=== PATIENT | female | born 1960 | race Caucasian/White ===

== ENCOUNTER 2018-09-21 19:44 | Emergency (ER) | payer OTHER ==
[2018-09-21 19:55] VITALS: BP 137/88
[2018-09-21] MEDS ORDERED: HYDROcodone/ACETAMIN 5-325 MG* 1 TAB PO ONE (20:16)
--- NOTE | 2018-09-21 20:16 | UC ---
Upper Extremity HPI - HPI Summary HPI Summary: 58-year-old woman comes in with a chief complaint of right arm pain. Several days ago had a bout the right elbow. Pain radiates up and down the arm into her neck. Patient feels like she's had a pinched nerve in her neck. She's had that condition in the past and that's what this reminds her of. She has no weakness or numbness. When she standing and her arms hanging down the pain is at its least. Movement and laying down makes the pain worse. No known trauma. - History of Current Complaint Chief Complaint: UCUpperExtremity Stated Complaint: SHOULDER AND ARM PAIN Time Seen by Provider: 09/21/18 19:51 Hx Last Menstrual Period: last one in November Pain Intensity: 6 - Allergies/Home Medications Allergies/Adverse Reactions: Allergies Allergy/AdvReac Type Severity Reaction Status Date / Time Penicillins Allergy Severe Hives/Diff. Verified 09/21/18 19:50 Breathing/I tching PMH/Surg Hx/FS Hx/Imm Hx Previously Healthy: Yes - Surgical History Surgical History: Yes Surgery Procedure, Year, and Place: Tonsillectomy/Adenoidectomy, 1967, [place], [place] - Family History Known Family History: Positive: Non-Contributory - Social History Alcohol Use: Rare Substance Use Type: None Smoking Status (MU): Never Smoked Tobacco - Immunization History Most Recent Tetanus Shot: 2008 Review of Systems All Other Systems Reviewed And Are Negative: Yes Constitutional: Positive: Negative Skin: Positive: Negative Eyes: Positive: Negative ENT: Positive: Negative Respiratory: Positive: Negative Cardiovascular: Positive: Negative Gastrointestinal: Positive: Negative Motor: Positive: Negative Neurovascular: Positive: Negative Musculoskeletal: Positive: Other: - SEE HPI Neurological: Positive: Negative Psychological: Positive: Negative Is Patient Immunocompromised?: No Physical Exam Triage Information Reviewed: Yes Appearance: Well-Appearing, Well-Nourished, Pain Distress - WITH ROM Vital Signs: Initial Vital Signs Temp 98.6 F 09/21/18 19:50 Pulse 82 09/21/18 19:50 Resp 18 09/21/18 19:50 BP 137/88 09/21/18 19:50 Pulse Ox 98 09/21/18 19:50 Vital Signs Reviewed: Yes Eye Exam: Normal Eyes: Positive: Conjunctiva Clear Neck: Positive: Supple, Tenderness @ - TENDERNESS TO PALPATION RT LATERAL TO UPPER SPINOUS PROCESS Respiratory: Positive: Lungs clear, Normal breath sounds, No respiratory distress Cardiovascular: Positive: RRR Musculoskeletal: Positive: Other: - Normal radial pulses bilaterally. Normal capillary refill bilaterally. No sensation deficits. Fingers wrist elbows and shoulders have full range of motion full-strength. Movement of the right arm does increase the pain. Neurological Exam: Normal Neurological: Positive: Muscle Tone Normal Psychological Exam: Normal Psychological: Positive: Age Appropriate Behavior Skin Exam: Normal Upper Extremity Course/Dx - Course Course Of Treatment: Patient will continue with ibuprofen 600 mg every 6 hours. Patient tells me that muscle relaxers have not helped her in the past. I prescribed [place] which patient reports it has worked in the past. At this time she has no focal neurologic deficits. I let her know that if she gets any weakness or numbness or the pain gets too extreme she needs to get reevaluated for potential imaging to include an MRI if is any neurologic deficit. Otherwise she'll be following up with primary care doctor. - Differential Dx/Diagnosis Provider Diagnosis: Right cervical radiculopathy Discharge - Sign-Out/Discharge Documenting (check all that apply): Patient Departure All imaging exams completed and their final reports reviewed: No Studies - Discharge Plan Condition: Stable Disposition: HOME Prescriptions: HYDROcodone/ACETAMIN 5-325 MG* [[place] 5-325 TAB*] 1 tab PO Q4H PRN #20 tab MDD 6 PRN Reason: Pain Patient Education Materials: Cervical Radiculopathy (ED) Referrals: Dana Encarnacion MD [Primary Care Provider] - Additional Instructions: FOLLOW UP WITH YOUR DOCTOR. GET REEVALUATED SOONER IF YOUR CONDITION WORSENS; PAIN, WEAKNESS, NUMBNESS OR ANY QUESTIONS OR CONCERNS. - Billing Disposition and Condition Condition: STABLE Disposition: Home
== END 2018-09-21 20:29 | disposition home or self-care (01) ==
LOC: UCEAST 19:44
DX: M54.12 Radiculopathy, cervical region (principal); Z88.0 Allergy status to penicillin
CPT/HCPCS: 99202; G0463

== ENCOUNTER 2024-05-11 08:13 | Inpatient (IN) ==
[2024-05-11 08:51] LABS: ABS Basophils 0.1 10^3/uL (0.0-0.1); ABS Eosinophils 0.1 10^3/uL (0.0-0.5); ABS Lymphocytes 1.2 10^3/uL (1.0-4.8); ABS Monocytes 0.9 10^3/uL (0.0-0.9); ABS Neutrophils 10.5 10^3/uL (1.5-7.6); ABS Nucleated RBC 0.01 10^3/ul; Eosinophil % 0.7 %; Hematocrit 31.5 % (35-45); Lymphocyte % 9.2 %; Mean Corpuscular Hemoglobin 25.9 pg (27-33); Mean Corpuscular Hgb Conc 31.7 g/dL (31-36); Mean Corpuscular Volume 81.5 fL (80-97); Mean Platelet Volume 8.6 fL (7.5-11.2); Nucleated Red Blood Cells % 0.1 %/100WBC (0.0-0.8); Platelet Count 367 10^3/uL (150-450); Red Blood Count 3.86 10^6/uL (3.63-4.92); Red Cell Distribution Width 15.3 % (12-17); White Blood Count 12.7 10^3/uL (3.8-11.8)
[2024-05-11 08:57] LABS: INR 1.11 (0.85-1.14)
[2024-05-11 09:16] LABS: High Sens Troponin Baseline 6 pg/mL (<15)
[2024-05-11 10:06] LABS: Anion Gap 7 mmol/L (2-16); Blood Urea Nitrogen 29 mg/dL (6-24); CO2 Carbon Dioxide 27 mmol/L (22-32); Calcium 8.8 mg/dL (8.6-10.3); Chloride 104 mmol/L (101-111); Creatinine, Serum 0.77 mg/dL (0.51-0.95); Glucose 98 mg/dL (70-100); Potassium 4.1 mmol/L (3.5-5.0); Sodium 138 mmol/L (135-145); eGFR CKD-EPI 86.6 (>60)
[2024-05-11 10:07] LABS: AST 512 U/L (13-39); Albumin 3.5 g/dL (3.2-5.2); Albumin/Globulin Ratio 1.5 (1-3); Alkaline Phosphatase 219 U/L (35-149); Globulin 2.3 g/dL (2-4); Total Protein 5.8 g/dL (6.4-8.9)
[2024-05-11 10:26] LABS: High Sensitivity Troponin 1 Hr 7 pg/mL (<15)
[2024-05-11 10:28] LABS: ALT 1241 U/L (7-52)
[2024-05-11] MEDS: methylPREDNISolone SOD SUCC 125 mg 2 ML VIAL IV ONE (12:58)
[2024-05-11] MEDS ORDERED: Triamcinolone 0.1% CREAM (NF) 15 GM TUBE TOPICAL PRN (14:31)
[2024-05-11 15:01] LABS: Acetaminophen < 15 mcg/mL
[2024-05-11] MEDS: Enoxaparin 40 MG/0.4 ML SYR SUBCUT SCH (18:25)
[2024-05-12 07:21] LABS: ABS Basophils 0.1 10^3/uL (0.0-0.1); ABS Eosinophils 0.1 10^3/uL (0.0-0.5); ABS Lymphocytes 2.4 10^3/uL (1.0-4.8); ABS Neutrophils 11.2 10^3/uL (1.5-7.6); ABS Nucleated RBC 0.01 10^3/ul; Eosinophil % 0.4 %; Hematocrit 27.8 % (35-45); Lymphocyte % 16.2 %; Mean Corpuscular Hemoglobin 26.3 pg (27-33); Mean Corpuscular Hgb Conc 32.5 g/dL (31-36); Mean Corpuscular Volume 80.9 fL (80-97); Mean Platelet Volume 8.8 fL (7.5-11.2); Platelet Count 321 10^3/uL (150-450); Red Blood Count 3.43 10^6/uL (3.63-4.92); Red Cell Distribution Width 15.4 % (12-17); White Blood Count 14.8 10^3/uL (3.8-11.8)
[2024-05-12 07:32] LABS: INR 1.13 (0.85-1.14)
[2024-05-12 07:40] LABS: Calcium 8.2 mg/dL (8.6-10.3); Creatinine, Serum 0.7 mg/dL (0.51-0.95); Potassium 4.4 mmol/L (3.5-5.0); eGFR CKD-EPI 97.1 (>60)
[2024-05-12 07:57] LABS: Albumin 2.9 g/dL (3.2-5.2); Albumin/Globulin Ratio 1.5 (1-3); Total Protein 4.9 g/dL (6.4-8.9)
[2024-05-12] MEDS: methylPREDNISolone SOD SUCC 125 mg 2 ML VIAL IV SCH (10:38)
[2024-05-12 12:49] LABS: HIV 4th Generation Nonreactive (Nonreactive)
[2024-05-12] MEDS: Senna TAB 8.6 mg TAB PO SCH (19:44)
[2024-05-12] MEDS: Polyethylene Glycol 3350 17 GM PACKET PO SCH (19:44)
[2024-05-13] MEDS ORDERED: COVID VAC 24-25 (12+) (Moderna) Syringe 0.5 mL IM ONE (09:00)
[2024-05-13 09:42] LABS: Calcium 8.6 mg/dL (8.6-10.3); Creatinine, Serum 0.73 mg/dL (0.51-0.95); Potassium 4.2 mmol/L (3.5-5.0); eGFR CKD-EPI 92.3 (>60)
[2024-05-13 10:03] LABS: Albumin 3.2 g/dL (3.2-5.2); Albumin/Globulin Ratio 1.5 (1-3); Globulin 2.1 g/dL (2-4); Total Bilirubin 1.2 mg/dL (0.2-1.0); Total Protein 5.3 g/dL (6.4-8.9)
[2024-05-13 12:20] LABS: Hepatitis A Ab IgM Negative (Negative)
[2024-05-13] MEDS: Influenza Vaccine *TRI* 2024-25* 0.5 ML SYRINGE IM ONE (12:22)
[2024-05-13 13:16] LABS: INR 1.08 (0.85-1.14)
[2024-05-13] MEDS ORDERED: Bismuth Subsalicylate (BTL) 525 MG/30 ML (BULK BTL) PO PRN (14:51)
[2024-05-13 18:52] LABS: Hematocrit 30.8 % (35-45); Hemoglobin 10.1 g/dL (11.5-14.3); Mean Corpuscular Hemoglobin 26.5 pg (27-33); Mean Corpuscular Hgb Conc 32.7 g/dL (31-36); Mean Corpuscular Volume 80.9 fL (80-97); Mean Platelet Volume 8.6 fL (7.5-11.2); Platelet Count 345 10^3/uL (150-450); Red Blood Count 3.81 10^6/uL (3.63-4.92); Red Cell Distribution Width 15.4 % (12-17); White Blood Count 10.6 10^3/uL (3.8-11.8)
[2024-05-14 06:22] LABS: ABS Basophils 0.1 10^3/uL (0.0-0.1); ABS Eosinophils 0.1 10^3/uL (0.0-0.5); ABS Lymphocytes 2.2 10^3/uL (1.0-4.8); ABS Monocytes 1.1 10^3/uL (0.0-0.9); ABS Neutrophils 14.4 10^3/uL (1.5-7.6); ABS Nucleated RBC 0.01 10^3/ul; Eosinophil % 0.6 %; Hematocrit 32.8 % (35-45); Hemoglobin 10.4 g/dL (11.5-14.3); Lymphocyte % 12.5 %; Mean Corpuscular Hemoglobin 25.8 pg (27-33); Mean Corpuscular Hgb Conc 31.7 g/dL (31-36); Mean Corpuscular Volume 81.5 fL (80-97); Mean Platelet Volume 8.7 fL (7.5-11.2); Nucleated Red Blood Cells % 0.1 %/100WBC (0.0-0.8); Platelet Count 377 10^3/uL (150-450); Red Blood Count 4.03 10^6/uL (3.63-4.92); Red Cell Distribution Width 15.5 % (12-17); White Blood Count 17.9 10^3/uL (3.8-11.8)
[2024-05-14 06:32] LABS: INR 1.08 (0.85-1.14)
[2024-05-14 07:01] LABS: Calcium 8.8 mg/dL (8.6-10.3); Creatinine, Serum 0.66 mg/dL (0.51-0.95); Potassium 4.6 mmol/L (3.5-5.0); eGFR CKD-EPI 98.5 (>60)
[2024-05-14 07:24] LABS: Albumin 3.5 g/dL (3.2-5.2); Albumin/Globulin Ratio 1.7 (1-3); Globulin 2.1 g/dL (2-4); Total Bilirubin 1.3 mg/dL (0.2-1.0); Total Protein 5.6 g/dL (6.4-8.9)
[2024-05-14] MEDS: COVID VAC 24-25 (12+) (Moderna) Syringe 0.5 mL IM ONE (11:35)
[2024-05-14] MEDS: Lactulose 30 ml UDC PO ONE (14:29)
[2024-05-15 06:49] LABS: ABS Eosinophils 0.2 10^3/uL (0.0-0.5); ABS Lymphocytes 2.3 10^3/uL (1.0-4.8); ABS Monocytes 0.8 10^3/uL (0.0-0.9); ABS Neutrophils 12.6 10^3/uL (1.5-7.6); ABS Nucleated RBC 0.01 10^3/ul; Hematocrit 28.5 % (35-45); Hemoglobin 9.1 g/dL (11.5-14.3); Lymphocyte % 14.5 %; Mean Corpuscular Hemoglobin 25.9 pg (27-33); Mean Platelet Volume 9.3 fL (7.5-11.2); Platelet Count 331 10^3/uL (150-450); Red Blood Count 3.52 10^6/uL (3.63-4.92); Red Cell Distribution Width 15.5 % (12-17); White Blood Count 15.9 10^3/uL (3.8-11.8)
[2024-05-15 06:56] LABS: INR 1.03 (0.85-1.14)
[2024-05-15 07:08] LABS: Calcium 8.2 mg/dL (8.6-10.3); Creatinine, Serum 0.75 mg/dL (0.51-0.95); Potassium 4.5 mmol/L (3.5-5.0); eGFR CKD-EPI 89.4 (>60)
[2024-05-15] MEDS: Magnesium Hydroxide LIQ 30 ML UDC PO SCH (08:33)
[2024-05-15 08:49] LABS: Albumin 3.1 g/dL (3.2-5.2); Albumin/Globulin Ratio 1.7 (1-3); Globulin 1.8 g/dL (2-4); Total Protein 4.9 g/dL (6.4-8.9)
[2024-05-15] MEDS: Gadoxetate (CONTRAST) 181.43 MG/ML 10 ML SDV IV ONE (22:23)
[2024-05-16 06:47] LABS: INR 1.08 (0.85-1.14)
[2024-05-16 06:50] LABS: ABS Basophils 0.1 10^3/uL (0.0-0.1); ABS Eosinophils 0.3 10^3/uL (0.0-0.5); ABS Lymphocytes 2.4 10^3/uL (1.0-4.8); ABS Monocytes 0.9 10^3/uL (0.0-0.9); ABS Nucleated RBC 0.01 10^3/ul; Eosinophil % 2.2 %; Hematocrit 27.2 % (35-45); Hemoglobin 8.7 g/dL (11.5-14.3); Lymphocyte % 19.2 %; Mean Corpuscular Hemoglobin 25.8 pg (27-33); Mean Corpuscular Hgb Conc 32.1 g/dL (31-36); Mean Corpuscular Volume 80.3 fL (80-97); Mean Platelet Volume 8.8 fL (7.5-11.2); Nucleated Red Blood Cells % 0.1 %/100WBC (0.0-0.8); Platelet Count 314 10^3/uL (150-450); Red Blood Count 3.38 10^6/uL (3.63-4.92); Red Cell Distribution Width 15.8 % (12-17); White Blood Count 12.7 10^3/uL (3.8-11.8)
[2024-05-16 07:43] LABS: Creatinine, Serum 0.68 mg/dL (0.51-0.95); Potassium 3.7 mmol/L (3.5-5.0); eGFR CKD-EPI 97.8 (>60)
[2024-05-16 08:02] LABS: Albumin 2.9 g/dL (3.2-5.2); Albumin/Globulin Ratio 1.7 (1-3); Globulin 1.7 g/dL (2-4); Magnesium 2.2 mg/dL (1.9-2.7); Total Bilirubin 0.8 mg/dL (0.2-1.0); Total Protein 4.6 g/dL (6.4-8.9)
[2024-05-16 14:12] LABS: CMV DNA DETECT/QT, P Undetected IU/mL (Undetected)
[2024-05-17 06:09] LABS: ABS Basophils 0.1 10^3/uL (0.0-0.1); ABS Eosinophils 0.2 10^3/uL (0.0-0.5); ABS Lymphocytes 2.4 10^3/uL (1.0-4.8); ABS Neutrophils 10.6 10^3/uL (1.5-7.6); ABS Nucleated RBC 0.01 10^3/ul; Eosinophil % 1.4 %; Hematocrit 26.8 % (35-45); Hemoglobin 8.6 g/dL (11.5-14.3); Lymphocyte % 16.8 %; Mean Corpuscular Hemoglobin 25.9 pg (27-33); Mean Corpuscular Hgb Conc 32.3 g/dL (31-36); Mean Corpuscular Volume 80.3 fL (80-97); Mean Platelet Volume 8.7 fL (7.5-11.2); Platelet Count 315 10^3/uL (150-450); Red Blood Count 3.33 10^6/uL (3.63-4.92); Red Cell Distribution Width 15.5 % (12-17); White Blood Count 14.3 10^3/uL (3.8-11.8)
[2024-05-17 06:14] LABS: INR 1.05 (0.85-1.14)
[2024-05-17 07:06] LABS: Calcium 8.1 mg/dL (8.6-10.3); Creatinine, Serum 0.67 mg/dL (0.51-0.95); Potassium 4.3 mmol/L (3.5-5.0); eGFR CKD-EPI 98.1 (>60)
[2024-05-17 07:26] LABS: Albumin 2.9 g/dL (3.2-5.2); Albumin/Globulin Ratio 1.6 (1-3); Globulin 1.8 g/dL (2-4); Magnesium 2.1 mg/dL (1.9-2.7); Total Bilirubin 0.7 mg/dL (0.2-1.0); Total Protein 4.7 g/dL (6.4-8.9)
[2024-05-18 06:30] LABS: ABS Basophils 0.1 10^3/uL (0.0-0.1); ABS Eosinophils 0.6 10^3/uL (0.0-0.5); ABS Lymphocytes 3.1 10^3/uL (1.0-4.8); ABS Monocytes 0.8 10^3/uL (0.0-0.9); ABS Neutrophils 9.1 10^3/uL (1.5-7.6); Hematocrit 28.6 % (35-45); Hemoglobin 9.1 g/dL (11.5-14.3); Mean Corpuscular Hemoglobin 25.4 pg (27-33); Mean Corpuscular Hgb Conc 31.8 g/dL (31-36); Mean Corpuscular Volume 79.8 fL (80-97); Mean Platelet Volume 8.6 fL (7.5-11.2); Platelet Count 322 10^3/uL (150-450); Red Blood Count 3.58 10^6/uL (3.63-4.92); Red Cell Distribution Width 15.7 % (12-17); White Blood Count 13.7 10^3/uL (3.8-11.8)
[2024-05-18 06:31] LABS: Lymphocyte % 22.5 %
[2024-05-18 07:16] LABS: Calcium 8.1 mg/dL (8.6-10.3); Creatinine, Serum 0.76 mg/dL (0.51-0.95); Potassium 4.2 mmol/L (3.5-5.0)
[2024-05-18 07:24] LABS: Albumin/Globulin Ratio 1.7 (1-3); Globulin 1.8 g/dL (2-4); Total Bilirubin 0.8 mg/dL (0.2-1.0); Total Protein 4.8 g/dL (6.4-8.9)
[2024-05-18] MEDS: fentaNYL 100 mcg/2 ml 50 MCG/ML VIAL ONE ×2 (11:07→11:58)
[2024-05-18 13:07] VITALS: BP 95/53
[2024-05-21 23:29] LABS: F-Actin Ab, IgG, Serum 7.1 U
== END 2024-05-18 15:45 | disposition home or self-care (01) ==
LOC: EDHOLD 08:13 → ED 08:13 → SUATTDRO 13:52 → MED 15:28
PROVIDERS: ADMIT Internal Medicine; ATTEND Internal Medicine

== ENCOUNTER 2024-06-25 10:04 | Observation (INO) ==
[~2024-06-25 10:04] MED LIST: IRON SUCROSE COMPLEX IVPB SCH; NS 0.9% IVPB SCH
[2024-06-25] MEDS ORDERED: Ondansetron 4 mg VIAL 2 MG/ML 2 ml VIAL IV PRN (15:16)
[2024-06-25] MEDS: NS 0.9% 1000 ml BAG 1,000 ML IV SCH (17:23)
[2024-06-25] MEDS: Ondansetron ODT 4 mg TAB 4 MG TAB PO PRN (18:09)
[2024-06-25] MEDS: Morphine 2 MG/ML SYRINGE IV PRN (18:10)
[2024-06-25] MEDS: Pantoprazole VIAL 40 MG VIAL IV ONE (18:11)
[2024-06-25] MEDS: prednisoLONE 1% OPHTH.SUSP 5 ML OPHTH.SUSP LEFT EYE SCH (21:07)
[2024-06-26 05:47] LABS: Hematocrit 22.6 % (35-45); Hemoglobin 7.3 g/dL (11.5-14.3); Mean Corpuscular Hemoglobin 25.1 pg (27-33); Mean Corpuscular Hgb Conc 32.4 g/dL (31-36); Mean Corpuscular Volume 77.4 fL (80-97); Mean Platelet Volume 7.5 fL (7.5-11.2); Platelet Count 383 10^3/uL (150-450); Red Blood Count 2.92 10^6/uL (3.63-4.92); Red Cell Distribution Width 22.9 % (12-17); White Blood Count 9.8 10^3/uL (3.8-11.8)
[2024-06-26 06:06] LABS: Albumin/Globulin Ratio 1.8 (1-3); Calcium 7.8 mg/dL (8.6-10.3); Creatinine, Serum 0.73 mg/dL (0.51-0.95); Globulin 1.7 g/dL (2-4); Magnesium 1.9 mg/dL (1.9-2.7); Potassium 4.2 mmol/L (3.5-5.0); Total Bilirubin 0.4 mg/dL (0.2-1.0); Total Protein 4.7 g/dL (6.4-8.9); eGFR CKD-EPI 92.3 (>60)
[2024-06-26 06:41] LABS: ABS Basophils 0.1 10^3/uL (0.0-0.1); ABS Eosinophils 0.2 10^3/uL (0.0-0.5); ABS Lymphocytes 1.1 10^3/uL (1.0-4.8); ABS Neutrophils 7.5 10^3/uL (1.5-7.6); Eosinophil % 1.6 %
[2024-06-26] MEDS: Pantoprazole VIAL 40 MG VIAL IV SCH (11:17)
[2024-06-26] MEDS ORDERED: Lidocaine 2% PF 5 ML VIAL ONE (14:08)
[2024-06-26] MEDS: Gadoteridol (CONTRAST) 279.3 MG/ML 10 ML IV ONE (20:25)
[2024-06-27 06:55] LABS: Hematocrit 22.6 % (35-45); Hemoglobin 7.1 g/dL (11.5-14.3); Mean Corpuscular Hemoglobin 24.6 pg (27-33); Mean Corpuscular Hgb Conc 31.6 g/dL (31-36); Mean Corpuscular Volume 77.9 fL (80-97); Mean Platelet Volume 7.7 fL (7.5-11.2); Platelet Count 395 10^3/uL (150-450); Red Cell Distribution Width 23.4 % (12-17); White Blood Count 7.9 10^3/uL (3.8-11.8)
[2024-06-27 07:11] LABS: Creatinine, Serum 0.76 mg/dL (0.51-0.95); Magnesium 1.9 mg/dL (1.9-2.7)
[2024-06-27 08:07] LABS: ABS Eosinophils 0.1 10^3/uL (0.0-0.5); ABS Monocytes 0.7 10^3/uL (0.0-0.9); Anisocytosis 3+; Eosinophil % 1.8 %; Hypochromasia 1+; Microcytosis 1+; Polychromasia 1+
[2024-06-27] MEDS: Iron Sucrose 200 MG in NS 0.9% 100 ml BAG 100 ML IVPB SCH (09:34)
[2024-06-27 09:59] VITALS: BP 105/62
[2024-06-27] MEDS: Pneumococcal 20-Valent Conj 0.5 ML SYR Vaccine IM ONE ×2 (11:07→11:09)
[2024-06-27] MEDS: HYDROcodone/ACETAMIN 5/325 mg TAB PO ONE (11:07)
== END 2024-06-27 13:45 | disposition home or self-care (01) ==
LOC: CHOAEAST 10:04 → MED 12:03 → SUATTDRO 12:03 → INTOOBSV 12:03
PROVIDERS: ADMIT Physician Assistant; ATTEND Student in an Organized Health Care Education/Training Program
PROC: O.GIEGD (2024-06-26 14:35)

== ENCOUNTER 2024-07-22 19:46 | Inpatient (IN) ==
[2024-07-22 20:23] LABS: Hematocrit 28.1 % (35-45); Hemoglobin 8.8 g/dL (11.5-14.3); Mean Corpuscular Hemoglobin 25.1 pg (27-33); Mean Corpuscular Hgb Conc 31.4 g/dL (31-36); Mean Corpuscular Volume 79.8 fL (80-97); Mean Platelet Volume 7.6 fL (7.5-11.2); Platelet Count 543 10^3/uL (150-450); Red Blood Count 3.53 10^6/uL (3.63-4.92); Red Cell Distribution Width 24.3 % (12-17); White Blood Count 7.3 10^3/uL (3.8-11.8)
[2024-07-22 20:32] LABS: INR 0.98 (0.85-1.14)
[2024-07-22 20:56] LABS: ABS Eosinophils 0.1 10^3/uL (0.0-0.5); ABS Lymphocytes 0.4 10^3/uL (1.0-4.8); ABS Monocytes 0.1 10^3/uL (0.0-0.9); ABS Neutrophils 6.7 10^3/uL (1.5-7.6); ABS Nucleated RBC 0.01 10^3/ul; Lymphocyte % 5.8 %; Nucleated Red Blood Cells % 0.1 %/100WBC (0.0-0.8)
[2024-07-22 21:20] LABS: Albumin 3.2 g/dL (3.5-5.7); Albumin/Globulin Ratio 1.3 (1-3); Calcium 8.6 mg/dL (8.6-10.3); Creatinine, Serum 0.79 mg/dL (0.51-0.95); Globulin 2.4 g/dL (2-4); Potassium 4.2 mmol/L (3.5-5.0); Total Bilirubin 0.4 mg/dL (0.2-1.0); Total Protein 5.6 g/dL (6.4-8.9)
[2024-07-22] MEDS: Morphine 4 MG/ML VIAL (1 ml) IV ONE ×2 (21:36→23:49)
[2024-07-22 22:06] LABS: High Sensitivity Troponin 1 Hr 9 pg/mL (<15)
[2024-07-23] MEDS: Iohexol 350 (CONTRAST) 500 ML MDV IV ONE (00:27)
[2024-07-23] MEDS: Ondansetron 4 mg VIAL 2 MG/ML 2 ml VIAL IV ONE ×2 (00:37→01:35)
[2024-07-23] MEDS ORDERED: Ondansetron ODT 4 mg TAB 4 MG TAB PO PRN (04:58)
[2024-07-23] MEDS ORDERED: Sulfur Hexaflouride MICROSPHR 25 MG VIAL IV PRN (04:59)
[2024-07-23] MEDS ORDERED: Morphine 2 MG/ML SYRINGE IV PRN ×2 (05:03)
[2024-07-23] MEDS: Enoxaparin 40 MG/0.4 ML SYR SUBCUT SCH (06:07)
[2024-07-23 06:24] LABS: ABS Eosinophils 0.2 10^3/uL (0.0-0.5); ABS Lymphocytes 0.4 10^3/uL (1.0-4.8); ABS Monocytes 0.1 10^3/uL (0.0-0.9); ABS Neutrophils 5.1 10^3/uL (1.5-7.6); Eosinophil % 2.8 %; Hematocrit 24.8 % (35-45); Hemoglobin 8.1 g/dL (11.5-14.3); Lymphocyte % 7.3 %; Mean Corpuscular Hgb Conc 32.6 g/dL (31-36); Mean Corpuscular Volume 79.8 fL (80-97); Mean Platelet Volume 7.6 fL (7.5-11.2); Nucleated Red Blood Cells % 0.1 %/100WBC (0.0-0.8); Platelet Count 463 10^3/uL (150-450); Red Blood Count 3.11 10^6/uL (3.63-4.92); Red Cell Distribution Width 24.3 % (12-17); White Blood Count 5.9 10^3/uL (3.8-11.8)
[2024-07-23 06:43] LABS: Calcium 8.2 mg/dL (8.6-10.3); Creatinine, Serum 0.68 mg/dL (0.51-0.95); Magnesium 1.8 mg/dL (1.9-2.7); Potassium 4.2 mmol/L (3.5-5.0); eGFR CKD-EPI 97.8 (>60)
[2024-07-23] MEDS ORDERED: cefTRIAXone 1 gm/50 mL D5W 1 GM/50 ML BAG IV SCH (09:00)
[2024-07-23] MEDS: Cefepime 2 GM in Dextrose 2 GM/50 ML BAG IV SCH (09:34)
[2024-07-23] MEDS ORDERED: Morphine 15 mg TAB (NF) PO PRN (09:59)
[2024-07-23] MEDS ORDERED: HYDROcodone/ACETAMIN 5/325 mg TAB PO PRN ×2 (09:59→10:02)
[2024-07-23] MEDS ORDERED: Morphine ORAL.SOLN 10 mg 2 mg/ml UDC 5 ml (10 mg) PO PRN (10:02)
[2024-07-23] MEDS: Magnesium Sulfate 2 gm BAG 2 GM/50 ML BAG IVPB ONE (10:30)
[2024-07-23] MEDS: Lactated Ringers 1000 ml BAG 1,000 ML IV SCH (10:35)
[2024-07-23] MEDS: Ondansetron 4 mg VIAL 2 MG/ML 2 ml VIAL IV PRN (15:55)
[2024-07-23] MEDS: HYDROmorphone 0.5 MG/0.5 ML SYRINGE IV SLOW PU PRN (18:51)
[2024-07-24] MEDS: HYDROmorphone 1 MG/1 ML SYRINGE IV SLOW PU PRN (01:21)
[2024-07-24 05:52] LABS: ABS Eosinophils 0.1 10^3/uL (0.0-0.5); ABS Lymphocytes 0.4 10^3/uL (1.0-4.8); ABS Monocytes 0.1 10^3/uL (0.0-0.9); ABS Neutrophils 3.3 10^3/uL (1.5-7.6); Eosinophil % 2.8 %; Hematocrit 22.9 % (35-45); Hemoglobin 7.4 g/dL (11.5-14.3); Lymphocyte % 10.8 %; Mean Corpuscular Hemoglobin 25.4 pg (27-33); Mean Corpuscular Hgb Conc 32.1 g/dL (31-36); Mean Corpuscular Volume 79.2 fL (80-97); Nucleated Red Blood Cells % 0.1 %/100WBC (0.0-0.8); Platelet Count 413 10^3/uL (150-450); Red Cell Distribution Width 23.6 % (12-17)
[2024-07-24 06:12] LABS: Albumin 2.6 g/dL (3.5-5.7); Albumin/Globulin Ratio 1.4 (1-3); Calcium 7.8 mg/dL (8.6-10.3); Creatinine, Serum 0.55 mg/dL (0.51-0.95); Globulin 1.9 g/dL (2-4); Magnesium 1.7 mg/dL (1.9-2.7); Potassium 4.3 mmol/L (3.5-5.0); Total Bilirubin 0.3 mg/dL (0.2-1.0); Total Protein 4.5 g/dL (6.4-8.9); eGFR CKD-EPI 102.9 (>60)
[2024-07-24] MEDS: Magnesium Sulfate 2 gm BAG 2 GM/50 ML BAG IVPB ONE (09:03)
[2024-07-24] MEDS: Lactated Ringers 1000 ml BAG 1,000 ML IV ONE (09:03)
[2024-07-24] MEDS ORDERED: Lorazepam PYXIS KEY PRN ×3 (09:26→15:59)
[2024-07-24] MEDS: Metoclopramide 5 MG/ML VIAL (10 mg) IV SLOW PU ONE (09:51)
[2024-07-24] MEDS: LORazepam 2 mg VIAL 1 ml IV PUSH ONE ×2 (09:52→16:54)
[2024-07-24] MEDS: fentaNYL PATCH 12 MCG/HR 1 PATCH TRANSDERM SCH (09:56)
[2024-07-24] MEDS: Famotidine IV 10 MG/ML 2 ml VIAL (20 mg) IV SLOW PU ONE (09:56)
[2024-07-24] MEDS: Lactated Ringers 1000 ml BAG 1,000 ML IV SCH (12:13)
[2024-07-24] MEDS: Metoclopramide LIQUID 1 mg/ml 10 ml ORAL.SOLN (10 mg) PO SCH (12:13)
[2024-07-24] MEDS ORDERED: LORazepam 2 mg VIAL 1 ml IV PUSH PRN ×2 (15:58→22:00)
[2024-07-24 16:29] LABS: Urine Appearance Clear; Urine Bilirubin Negative (Negative); Urine Blood Negative (Negative); Urine Color Light-Yellow; Urine Glucose Negative (Negative); Urine Ketones 1+ (Negative); Urine Nitrite Negative (Negative); Urine Protein Trace (Negative); Urine Specific Gravity 1.018 (1.002-1.030); Urine Urobilinogen Negative (Negative)
[2024-07-24 16:37] LABS: Urine Bacteria Absent /HPF (Absent); Urine Red Blood Cell Trace(0-2/hpf) /HPF (0-Trace); Urine Squamous Epithelial Cell Present /HPF (Absent); Urine White Blood Cell Trace(0-5/hpf) /HPF (0-Trace)
[2024-07-24] MEDS: Metoclopramide 5 MG/ML VIAL (10 mg) IV SCH (18:37)
[2024-07-24] MEDS: fentaNYL Patch Check Q Shift NOTE FOLLOW UP SCH (19:16)
[2024-07-24] MEDS: OLANZapine 5 mg TAB *ODT PO SCH (21:55)
[2024-07-25 10:24] LABS: ABS Eosinophils 0.1 10^3/uL (0.0-0.5); ABS Lymphocytes 0.3 10^3/uL (1.0-4.8); ABS Monocytes 0.1 10^3/uL (0.0-0.9); ABS Neutrophils 2.6 10^3/uL (1.5-7.6); Eosinophil % 4.3 %; Hematocrit 23.3 % (35-45); Hemoglobin 7.7 g/dL (11.5-14.3); Lymphocyte % 9.4 %; Mean Corpuscular Hemoglobin 26.1 pg (27-33); Mean Corpuscular Hgb Conc 33.3 g/dL (31-36); Mean Corpuscular Volume 78.3 fL (80-97); Mean Platelet Volume 7.8 fL (7.5-11.2); Platelet Count 407 10^3/uL (150-450); Red Blood Count 2.97 10^6/uL (3.63-4.92); Red Cell Distribution Width 23.6 % (12-17); White Blood Count 3.1 10^3/uL (3.8-11.8)
[2024-07-25] MEDS: Polyethylene Glycol 3350 17 GM PACKET PO SCH (12:15)
[2024-07-25 14:11] LABS: Calcium 8.1 mg/dL (8.6-10.3); Creatinine, Serum 0.55 mg/dL (0.51-0.95); Magnesium 1.6 mg/dL (1.9-2.7); Potassium 3.5 mmol/L (3.5-5.0); eGFR CKD-EPI 102.9 (>60)
[2024-07-25] MEDS ORDERED: HYDROmorphone 0.5 MG/0.5 ML SYRINGE IV SLOW PU PRN (15:22)
[2024-07-25] MEDS ORDERED: HYDROmorphone 1 MG/1 ML SYRINGE IV SLOW PU PRN (15:24)
[2024-07-25] MEDS: HYDROmorphone 0.5 MG/0.5 ML SYRINGE IV SLOW PU SCH (15:52)
[2024-07-25] MEDS ORDERED: HYDROmorphone 0.5 MG/0.5 ML SYRINGE IV SLOW PU SCH (16:00)
[2024-07-25] MEDS ORDERED: cefTRIAXone 2 gm/50 mL D5W 2 GM/50 ML BAG IV SCH (16:00)
[2024-07-25] MEDS: cefTRIAXone 2 gm/50 mL D5W 2 GM/50 ML BAG IV SCH (17:01)
[2024-07-25] MEDS: Magnesium Sulf 4 GM/100 ML IV 4,000 MG/100 ML BAG IVPB ONE (17:57)
[2024-07-25] MEDS: Dexamethasone IV 4 MG/ML VIAL 1 ml VIAL IV SLOW PU SCH (20:25)
[2024-07-25] MEDS: Ondansetron ODT 4 mg TAB 4 MG TAB SL PRN (21:26)
[2024-07-26] MEDS ORDERED: HYDROmorphone 0.5 MG/0.5 ML SYRINGE IV SLOW PU PRN (07:34)
[2024-07-26] MEDS: Sulfamethox/Trimethoprim DS TAB 800/160 mg PO SCH (09:18)
[2024-07-26] MEDS: Senna TAB 8.6 mg TAB PO PRN (10:38)
[2024-07-26] MEDS: Polyethylene Glycol 3350 17 GM PACKET PO PRN (10:38)
[2024-07-27] MEDS: Lidocaine PATCH 5% PATCH TRANSDERM SCH (12:35)
[2024-07-28] MEDS: Magnesium Hydroxide LIQ 30 ML UDC PO PRN (18:18)
[2024-07-29] MEDS: Magnesium Hydroxide LIQ 30 ML UDC PO SCH (01:34)
[2024-07-29] MEDS: Al Hydrox/Mg Hydrox/Simet LIQ 30 ML UDC PO PRN (20:12)
[2024-07-30] MEDS: Prochlorperazine 5 mg/ml 2 ml VIAL (10 mg) IV PRN (04:26)
[2024-07-30 08:36] VITALS: BP 112/69
[2024-07-30] MEDS: Ondansetron ODT 4 mg TAB 4 MG TAB SL SCH (12:35)
== END 2024-08-03 11:45 | disposition hospice, home (50) | DRG 720 ==
LOC: EDHOLD 19:46 → ED 19:46 → SUATTDRO 07-23 04:18 → MED 07-23 06:12 → SUATTDRO 07-23 22:00
PROVIDERS: ADMIT Student in an Organized Health Care Education/Training Program; ATTEND Internal Medicine